=== PATIENT | female | born 1980 | race Caucasian/White ===

== ENCOUNTER → 2020-01-30 | Outpatient (CLI) | payer OTHER | LOC: SJCVCIMAG 01-29 14:14 | PROVIDERS: ATTEND Internal Medicine Cardiovascular Disease | DX: I08.2 Rheumatic disorders of both aortic and tricuspid valves (principal); R50.9 Fever, unspecified; J90 Pleural effusion, not elsewhere classified; E78.5 Hyperlipidemia, unspecified; R60.9 Edema, unspecified; R01.2 Other cardiac sounds; M79.601 Pain in right arm; M79.602 Pain in left arm; E03.9 Hypothyroidism, unspecified; Z82.49 Family history of ischemic heart disease and other diseases of the circulatory system; Z79.899 Other long term (current) drug therapy ==